=== PATIENT | male | born 1970 | race Caucasian/White ===

== ENCOUNTER 2019-09-10 19:09 | Emergency (ER) | payer OTHER, SELFPAY ==
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
--- NOTE | ~2019-09-10 | XR_ITS ---
EXAMINATION: XR ankle LT min 3V DATE: 09/10/2019 19:28 INDICATION: Left ankle pain TECHNIQUE: Anteroposterior, lateral, mortise, and additional oblique view of the ankle were obtained. COMPARISON: None. FINDINGS: There is medial soft tissue swelling of ankle. No fracture, dislocation, or subluxation is identified. Dorsal and plantar calcaneal enthesophytes are noted. IMPRESSION: 1. Medial soft tissue swelling without acute osseous abnormality. Reviewed, dictated and finalized at location A.
[2019-09-10 19:12] VITALS: BP 109/76; PULSE 86; RESP 16; TEMP 36.1; O2SAT 98
[2019-09-10 20:14] VITALS: RESP 20
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
[2019-09-10 20:31] VITALS: BP 122/80; PULSE 92; TEMP 37.6; O2SAT 99
[2019-09-10 20:37] VITALS: BP 122/80; PULSE 92; RESP 18; TEMP 37.6; O2SAT 99
== END 2019-09-10 20:38 | disposition home or self-care (01) ==
PROVIDERS: Emergency Provider Emergency Medicine; PCP Internal Medicine
DX: M25.572 Pain in left ankle and joints of left foot (principal); I10 Essential (primary) hypertension; G47.30 Sleep apnea, unspecified; V86.55XA Driver of 3- or 4- wheeled all-terrain vehicle (ATV) injured in nontraffic accident, initial encounter
CPT/HCPCS: 73590; 73610; 99284; A9270

== ENCOUNTER 2019-09-23 13:41 | Outpatient (CLI) | payer OTHER, SELFPAY ==
--- NOTE | ~2019-09-23 | US_ITS ---
US venous doppler [facility] DATE: 09/23/2019 14:49 INDICATION: Left leg pain and swelling TECHNIQUE: Real-time and color flow imaging and Doppler analysis of the veins of the left lower extre mity COMPARISON: None FINDINGS: There is spontaneous and phasic flow and normal augmentation and color flow signal and norm al compression of the deep veins of the left lower extremity IMPRESSION: Negative examination Reviewed, dictated and finalized at Location A. Reviewed, dictated and finalized at location B. IMPRESSION: Negative examination
== END 2019-09-23 13:42 | disposition home or self-care (01) ==
PROVIDERS: PCP Internal Medicine; Visit Provider Internal Medicine
DX: M79.662 Pain in left lower leg (principal)
CPT/HCPCS: 93971

== ENCOUNTER 2019-10-13 06:34 | Outpatient (CLI) | payer OTHER, SELFPAY ==
--- NOTE | ~2019-10-13 | MR_ITS ---
EXAMINATION: MR ankle LT wo con DATE: 10/13/2019 08:01 INDICATION: Sprain of the deltoid ligament of left ankle, initial encounter. TECHNIQUE: Magnetic resonance imaging (MRI) of the left ankle was performed without intravenous contr ast. Sequences included sagittal PD-weighted FS FSE, sagittal PD-weighted FSE, coronal PD-weighted FS FSE, coronal PD-weighted FSE, axial PD-weighted FS FSE, and axial PD-weighted FSE. COMPARISON: Left ankle radiographs 09/10/2019 FINDINGS: Medial ankle ligaments: There is a grade 2 sprain of superficial component of the deltoid ligament characterized by thickenin g and increased signal intensity. Deep component of the deltoid ligament is intact. Lateral ankle ligaments: The anterior and posterior talofibular ligaments, calcaneofibular ligament, and posterior tibiofibula r ligaments are normal. There are changes of grade 2 sprain of anterior tibiofibular ligament charact erized by thickening and increased signal intensity. Tendons: There is mild peroneus longus tendinopathy. Achilles tendon is normal. There is tenosynovitis of flex or hallucis longus. The anterior ankle tendons are normal. Plantar fascia: Normal. There is an enthesophyte at the calcaneal attachment. Bones/other: Bone alignment is normal. No fracture. Talar dome is normal. There is bone marrow edema in anterior p rocess of calcaneus and medial aspects of the talar head and navicular, likely stress reaction. There is a 1.6 cm lesion of increased T2-weighted signal intensity in proximal fourth metatarsal that may be an enchondroma or subchondral cyst. Fluid: There is no joint effusion. There is a 2.1 x 0.3 x 0.5 cm ganglion cyst dorsolateral to talonavicular joint. There is subcutaneous edema about the ankle. IMPRESSION: 1. Grade 2 sprains of superficial component of the deltoid ligament and anterior tibiofibular ligamen t. 2. Ganglion cyst dorsolateral to talonavicular joint. Reviewed, dictated and finalized at location A. IMPRESSION: 1. Grade 2 sprains of superficial component of the deltoid ligament and anterio r tibiofibular ligament. 2. Ganglion cyst dorsolateral to talonavicular joint.
== END 2019-10-13 06:35 | disposition home or self-care (01) ==
LOC: ANHIMG 06:36
PROVIDERS: PCP Internal Medicine; Visit Provider Internal Medicine
DX: S93.422A Sprain of deltoid ligament of left ankle, initial encounter (principal); M67.472 Ganglion, left ankle and foot
CPT/HCPCS: 73721